=== PATIENT | female | born 1935 | race Caucasian/White ===

== ENCOUNTER 2022-12-16 13:56 | Outpatient (CLI) | payer MEDICARE, OTHER | END 2022-12-16 23:59 | disposition critical access hospital (66) | LOC: EMS 13:56 | DX: F03.911 Unspecified dementia, unspecified severity, with agitation (principal) | CPT/HCPCS: A0425; A0429 ==

== ENCOUNTER 2022-12-16 14:15 | Emergency (ER) | payer MEDICARE, OTHER ==
[2022-12-16] MEDS ORDERED: HALOPERIDOL 5 MG/ML VIAL IM STA ×2 (14:24→19:33)
[2022-12-16] MEDS ORDERED: OLANZapine 10 MG VIAL IM STA (14:24)
--- NOTE | 2022-12-16 14:28 | ED Physician Documentation ---
Restraint [id number] - Immediate Situation Face to Face Evaluation Date: 12/16/22 Face to Face Evaluation Time: 14:27 Restraint Classification: Violent, chemical w/ physical hold Restraint Type: Soft extremity, Side rails X 4, Chemical - Patient's Reaction & Behaviors Safety: Physically unsafe, Non-compliant Verbal: Screaming/Yelling Harm: Actual harm to others, Potential harm to self Physical: Aggressive behavior - Behavioral Condition Attitude: Indifferent Behavior: Agitated Orientation: Disoriented to all Mood: Other (Crying/Yelling) - Evaluation Review of Systems: Unable to obtain due to patient condition as well as history of dementia And reportedly nonverbal at baseline Pertinent History/Illicit Drugs/Medications/Results: Dementia - Plan Need to Continue or Terminate Violent or Chemical Restraint: We will remove physical restraints once patient is cooperative and no longer trying to hit at staff or interfering with assessment.
--- NOTE | 2022-12-16 14:42 | ED Physician Documentation ---
History of Present Illness - Stated complaint Stated Complaint: AGITATION - Chief complaint Chief Complaint: Neuro - History obtained from History obtained from: EMS - Additonal information Additional information: Patient is an 87-year-old female from home place with reported history of dementia. They report that she has been at the facility since last Thursday and has been refusing her medications including Seroquel which she receives at bedtime. For the past 4 hours she has been increasingly agitated with throwing anything that she can get her hands on with staff, kicking and hitting at them. Per EMS, patient is nonverbal at baseline. They also state she has had poor sleep at the facility. History is very limited as patient is not able to provide any. Review of Systems Unable to obtain: Dementia PD PAST MEDICAL HISTORY - Present Medications Home Medications: Ambulatory Orders Medication Instructions Recorded Confirmed Aspirin [Trimble Aspirin] 81 mg PO DAILY 12/16/22 12/16/22 Cholecalciferol (Vitamin D3) 12/16/22 [Vitamin D3] Cyanocobalamin (Vitamin B-12) 12/16/22 [Vitamin B-12] Digoxin [Digitek] 125 mcg PO 12/16/22 Ferrous Sulfate 325 mg PO DAILY 12/16/22 12/16/22 Levothyroxine [Synthroid] 112 mcg PO QDAC 12/16/22 12/16/22 Metoprolol Succinate [Toprol Xl] 50 mg PO 12/16/22 Multivitamin [Theragran] 1 tab PO DAILY 12/16/22 12/16/22 Omeprazole 20 mg PO DAILY 12/16/22 12/16/22 QUEtiapine [SEROquel] 25 mg PO DAILY PM 12/16/22 12/16/22 - Allergies Allergies/Adverse Reactions: Allergies Allergy/AdvReac Type Severity Reaction Status Date / Time latanoprost Allergy Unknown Verified 12/16/22 14:29 nitrofurantoin Allergy Unknown Verified 12/16/22 14:29 [From Macrobid] Sulfa (Sulfonamide Allergy Unknown Verified 12/16/22 14:29 Antibiotics) PD ED PE NORMAL - General General: Well developed/nourished, Other (Yelling nonsensically, alert, unable to establish orientation) - HEENT HEENT: Atraumatic, PERRL, Moist mucous membranes - Neck Neck: Supple, no meningeal sign - Cardiac Cardiac: RRR, No murmur - Respiratory Respiratory: No respiratory distress, Clear bilaterally - Abdomen Abdomen: Soft, Non tender - Derm Derm: Warm and dry - Extremities Extremities: No deformity - Neuro Neuro: Other (Moves all extremities) Results - Vitals Vitals: Vital Signs - 24 hr 12/16/22 12/16/22 12/16/22 14:23 14:27 16:13 Temperature 36.5 C Heart Rate 98 65 Respiratory 22 Rate Blood Pressure 103/76 O2 Saturation 98 100 Oxygen O2 Source Room air - EKG (time done) 1645 EKG releavant findings:: EKG personally interpreted by author of this note. Relevant findings are: Rate 73, atrial flutter, No prior for comparison, no STEMI Rate: Rate (enter#) (73) Rhythm: Atrial flutter Intervals: No: Prolonged QT Ischemia: No: ST elevation c/w ischemia Compare to prior EKG: Old EKG unavailable - Labs Labs: Laboratory Tests 12/16/22 12/16/22 12/16/22 15:47 15:47 15:47 WBC 10.9 H RBC 4.63 Hgb 14.8 Hct 43.8 MCV 94.6 MCH 32.0 H MCHC 33.8 RDW 12.7 Plt Count 141 MPV 11.2 H Neut # (Auto) 7.7 H Lymph # (Auto) 2.0 [place] # (Auto) 1.0 Eos # (Auto) 0.1 Baso # (Auto) 0.1 Absolute Nucleated RBC 0.00 Nucleated RBC % 0.0 Sodium 139 Potassium 3.5 Chloride 104 Carbon Dioxide 24 Anion Gap 11.0 BUN 43 H Creatinine 1.3 H Estimated GFR (MDRD) 39 L Glucose 193 H Calcium 8.9 Total Bilirubin 1.4 H AST 67 H ALT 43 Alkaline Phosphatase 105 Total Protein 7.8 Albumin 3.8 Globulin 4.0 Albumin/Globulin Ratio 1.0 Lipase 46 TSH 7.35 H Free T4 Urine Color Urine Clarity Urine pH Ur Specific [place] Urine Protein Urine Glucose (UA) Urine Ketones Urine Occult Blood Urine Nitrite Urine Bilirubin Urine Urobilinogen Ur Leukocyte Esterase Urine RBC Urine WBC Ur Squamous Epith Cells Urine Bacteria Urine Casts Urine Mucus Ur Microscopic Review Urine Culture Comments Salicylates < 6.0 Urine Opiates Screen Ur Oxycodone Screen Urine Methadone Screen Ur Propoxyphene Screen Acetaminophen < 10 L Ur Barbiturates Screen Ur Tricyclics Screen Ur Phencyclidine Scrn Ur Amphetamine Screen U Methamphetamines Scrn U Benzodiazepines Scrn Urine Cocaine Screen U Cannabinoids Screen Ethyl Alcohol < 5.0 12/16/22 12/16/22 15:47 17:56 WBC RBC Hgb Hct MCV MCH MCHC RDW Plt Count MPV Neut # (Auto) Lymph # (Auto) [place] # (Auto) Eos # (Auto) Baso # (Auto) Absolute Nucleated RBC Nucleated RBC % Sodium Potassium Chloride Carbon Dioxide Anion Gap BUN Creatinine Estimated GFR (MDRD) Glucose Calcium Total Bilirubin AST ALT Alkaline Phosphatase Total Protein Albumin Globulin Albumin/Globulin Ratio Lipase TSH Free T4 0.98 Urine Color DARK YELLOW Urine Clarity HAZY Urine pH 6.0 Ur Specific [place] 1.025 Urine Protein 100 H Urine Glucose (UA) NEGATIVE Urine Ketones 15 H Urine Occult Blood MODERATE H Urine Nitrite NEGATIVE Urine Bilirubin NEGATIVE Urine Urobilinogen 0.2 (NORMAL) Ur Leukocyte Esterase TRACE H Urine RBC 6-10 H Urine WBC 4-5 Ur Squamous Epith Cells MOD Squamous H Urine Bacteria Few Urine Casts 3-5 Hyaline Casts Urine Mucus Few Strands Ur Microscopic Review INDICATED Urine Culture Comments NOT INDICATED Salicylates Urine Opiates Screen NEGATIVE Ur Oxycodone Screen NEGATIVE Urine Methadone Screen NEGATIVE Ur Propoxyphene Screen NEGATIVE Acetaminophen Ur Barbiturates Screen NEGATIVE Ur Tricyclics Screen NEGATIVE Ur Phencyclidine Scrn NEGATIVE Ur Amphetamine Screen NEGATIVE U Methamphetamines Scrn NEGATIVE U Benzodiazepines Scrn NEGATIVE Urine Cocaine Screen NEGATIVE U Cannabinoids Screen NEGATIVE Ethyl Alcohol PD Medical Decision Making - ED course Complexity details: reviewed results, re-evaluated patient, d/w family ED course: Patient is an 87-year-old female with a history of dementia and behavioral disturbances presenting for evaluation of increased agitation over the past several hours. She has been in a new environment for the past 1 week. I spoke to her son Gabino. He states that the patient was living with his other brother Jordan for the past several years and he has been primarily caring for her. She has been in this halfway for the past 1 week for a 2-week respite care stay so that his brother could take some time for himself on a vacation. His brother Jordan is away on a cruise and is unable to be reached today. He is unsure if patient has reported having had back pain in the past.He does report that at times she has had episodes of acting out and throwing pillows.He is not able to provide much history regarding his mother. Upon arrival patient is noncooperative with any interventions from EMS or in the ED to obtain vital signsOr assess her. She is swinging at staff. She is kicking her legs. She was given IM Haldol for chemical sedation. After the Haldol she was able to be much more cooperative with obtaining a CT imaging, labs, urine analysis. Per the nurse feel that she was even able to get up to the commode to give a urine sample. At times patient states that she may have pain in the back. Her ability to communicate is limited. I did evaluate her back. She does not have any midline tenderness. She does have a well-healed incision to the lower back. She does not have any abdominal tenderness on exam. I reviewed her labs including CBC, chemistries, urine analysis as well as imaging including CT head, CT lumbar spine and chest x-ray.Her TSH was elevated but free T4 is normal. Mild elevation to Cr - unclear of her baseline. Tbili and AST also slightly elevated. No abdominal tenderness on repeated exams and pt is tolerating PO intake without issue (given sandwich). Even with haldol IM on board pt is refusing PO medications and at times striking out at staff. Perhaps with sleep tonight she will be more amenable to taking her meds in the AM. She will remain boarding in ED and is signed out to oncoming provider at shift change. Departure - Departure Clinical Impression: Dementia with behavioral disturbance Condition: Stable
[2022-12-16 15:54] LABS: BASOPHILS # (AUTO) 0.1 10^3/uL (0.0-0.1); BASOPHILS % (AUTO) 0.6 %; EOSINOPHILS # (AUTO) 0.1 10^3/uL (0.0-0.7); EOSINOPHILS % (AUTO) 0.6 %; HCT - HEMATOCRIT 43.8 % (37.0-47.0); HGB - HEMOGLOBIN 14.8 g/dL (12.0-16.0); LYMPHOCYTES % (AUTO) 18.1 %; MEAN CORPUSCULAR HGB CONC 33.8 g/dL (32.0-36.0); MEAN CORPUSCULAR VOLUME 94.6 fL (81.0-99.0); MEAN PLATELET VOLUME 11.2 fL (7.9-10.8); MONOCYTES % (AUTO) 9.4 %; NEUTROPHILS # (AUTO) 7.7 10^3/uL (1.5-6.6); NEUTROPHILS % (AUTO) 70.9 %; PLT - PLATELET COUNT 141 10^3/uL (130-450); RED BLOOD COUNT 4.63 10^6/uL (4.20-5.40); RED CELL DISTRIBUTION WIDTH 12.7 % (12.0-15.0); WHITE BLOOD COUNT 10.9 x10^3/uL (4.8-10.8)
[2022-12-16 16:11] LABS: ACETAMINOPHEN < 10 ug/mL (10-30); ALBUMIN 3.8 g/dL (3.2-5.5); ALKALINE PHOSPHATASE 105 IU/L (42-121); ALT ALANINE AMINOTRANSFERASE 43 IU/L (10-60); AST ASPARTATE AMINOTRANSFERASE 67 IU/L (10-42); BILIRUBIN,TOTAL 1.4 mg/dL (0.2-1.0); BUN - BLOOD UREA NITROGEN 43 mg/dL (6-20); CALCIUM 8.9 mg/dL (8.5-10.3); CARBON DIOXIDE - CO2 24 mmol/L (21-32); CHLORIDE 104 mmol/L (101-111); CREATININE 1.3 mg/dL (0.4-1.0); ETOH - ETHANOL < 5.0 mg/dL; GFR - MDRD 39 (>89); GLUCOSE 193 mg/dL (70-100); LIPASE 46 U/L (22-51); POTASSIUM 3.5 mmol/L (3.5-5.0); SALICYLATE < 6.0 mg/dL; SODIUM 139 mmol/L (135-145); TOTAL PROTEIN 7.8 g/dL (6.7-8.2)
--- NOTE | 2022-12-16 16:34 | CT Report ---
PROCEDURE: HEAD WO INDICATIONS: AMS/agitation/dementia TECHNIQUE: Noncontrast 4.5 mm thick angled axial sections acquired from the foramen magnum to the vertex. For r adiation dose reduction, the following was used: automated exposure control, adjustment of mA and/or kV according to patient size. COMPARISON: None. FINDINGS: Image quality: Excellent. CSF spaces: Basal cisterns are patent. No extra-axial fluid collections. Ventricles are normal in size and shape. Brain: No midline shift. No intracranial masses or hemorrhage. Hernandez-white matter interface is norm al. Leukoaraiosis, commonly caused by chronic small vessel ischemic disease. Age-related volume loss. Skull and face: Calvarium and visualized facial bones are intact, without suspicious lesions. Sinuses: Visualized sinuses and mastoids are clear. IMPRESSION: No acute intracranial pathology Reviewed by: Luigi Horne on 12/16/2022 4:32 PM PDT Approved by: Luigi Horne on 12/16/2022 4:32 PM PDT Station ID: [id number]
--- NOTE | 2022-12-16 16:35 | XRAY Report ---
PROCEDURE: Chest 1 View X-Ray INDICATIONS: AMS TECHNIQUE: One view of the chest was acquired. COMPARISON: None. FINDINGS: Surgical changes and devices: None. Lungs and pleura: Low lung volumes. Increased pulmonary markings. Probable small effusions. Peribron chial cuffing. Mediastinum: Mediastinal contours appear normal. Heart size is normal. Bones and chest wall: No suspicious bony lesions. Overlying soft tissues appear unremarkable. IMPRESSION: Moderate pulmonary edema and suspected small pleural effusions. Reviewed by: Luigi Horne on 12/16/2022 4:33 PM PDT Approved by: Luigi Horne on 12/16/2022 4:33 PM PDT Station ID: [id number]
[2022-12-16 17:59] LABS: MUDS CUTOFF CONCENTRATIONS CUTOFF CONC BELOW:
[2022-12-16 18:03] LABS: BILIRUBIN,URINE NEGATIVE (NEGATIVE); GLUCOSE, URINE (UA) NEGATIVE (NEGATIVE); KETONES,URINE (UA) 15 mg/dL (NEGATIVE); LEUKOCYTE ESTERASE, URINE TRACE (NEGATIVE); NITRITE,URINE NEGATIVE (NEGATIVE); OCCULT BLOOD,URINE MODERATE (NEGATIVE); PROTEIN,URINE 100 mg/dL (NEGATIVE); UROBILINOGEN,URINE 0.2 (NORMAL) E.U./dL (NORMAL)
[2022-12-16 18:15] LABS: AMPHETAMINE SCREEN,URINE NEGATIVE (NEGATIVE); BARBITURATE SCREEN,UR NEGATIVE (NEGATIVE); BENZODIAZEPINES SCREEN, URINE NEGATIVE (NEGATIVE); CLARITY,URINE HAZY (CLEAR); COCAINE SCREEN URINE NEGATIVE (NEGATIVE); METHADONE SCREEN, URINE NEGATIVE (NEGATIVE); METHAMPHETAMINES SCREEN, URINE NEGATIVE (NEGATIVE); OPIATE SCREEN, URINE NEGATIVE (NEGATIVE); OXYCODONE SCREEN, URINE NEGATIVE (NEGATIVE); PROPOXYPHENE SCREEN, URINE NEGATIVE (NEGATIVE); THC CANNABINOID SCREEN, URINE NEGATIVE (NEGATIVE); TRICYCLIC ANTIDEPRESSANT,URINE NEGATIVE (NEGATIVE)
[2022-12-16 18:16] LABS: BACTERIA,URINE Few /HPF (None Seen); CASTS, URINE 3-5 Hyaline Casts /LPF; MUCUS,URINE Few Strands; SQUAMOUS EPITHELIAL CELL,UR MOD Squamous (<= Few)
[2022-12-16] MEDS ORDERED: HALOPERIDOL 5 MG/ML VIAL ONE (19:42)
--- NOTE | 2022-12-16 19:42 | CT Report ---
PROCEDURE: LUMBAR SPINE WO INDICATIONS: pain TECHNIQUE: Noncontrast 3 mm thick sections acquired from the T12 level to the sacrum. Sagittal and coronal refo rmats were constructed. For radiation dose reduction, the following was used: automated exposure co ntrol, adjustment of mA and/or kV according to patient size. COMPARISON: None. FINDINGS: Image quality: Excellent. Bones: There is grade 1 anterolisthesis of L4 on L5, and grade 1 retrolisthesis of L2 on L3. No acu te vertebral body compression fractures. No suspicious lytic or blastic bony lesions. Central spina l caliber is of normal overall caliber. No pars defects. Degenerative disc disease, [id number] at L1-L2, L2-L3, L3-L4 and L4-L5. Severe bilateral face t arthropathy at L3-L4, L4-L5 and L5-S1. There is osteopenia. Soft tissues: No retroperitoneal masses or hematomas. Visualized aorta is normal in caliber. Severe atherosclerotic calcifications of aorta and iliac arteries. 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 Diverticulosis without acute diverticulitis. IMPRESSION: 1. No fracture. 2. 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 3. Osteopenia. Reviewed by: Selwyn Medrano MD on 12/16/2022 7:41 PM PDT Approved by: Selwyn Medrano MD on 12/16/2022 7:41 PM PDT Station ID: [id number]
[2022-12-16] MEDS: QUEtiapine 25 MG TABLET PO STA (19:45)
--- NOTE | 2022-12-16 21:30 | ED Physician Documentation ---
Restraint Ucuz-yh-[id number] - Immediate Situation Face to Face Evaluation Date: 12/16/22 Face to Face Evaluation Time: 19:38 Restraint Classification: Violent, chemical Restraint Type: Chemical - Patient's Reaction & Behaviors Safety: Physically unsafe Verbal: Screaming/Yelling Harm: Potential harm to self, Potential harm to others Physical: Aggressive behavior - Behavioral Condition Attitude: Indifferent Behavior: Agitated Orientation: Disoriented to all Mood: Angry - Evaluation Review of Systems: Unable to obtain due to patient condition as well as history of dementia And re portedly nonverbal at baseline Pertinent History/Illicit Drugs/Medications/Results: Dementia - Plan Need to Continue or Terminate Violent or Chemical Restraint: We will remove restraints once It is safe to do so.
[2022-12-17] MEDS: QUEtiapine 25 MG TABLET PO STA (02:28)
[2022-12-17 05:05] VITALS: BP 103/76
== END 2022-12-17 04:26 | disposition home or self-care (01) ==
LOC: ED 14:15
DX: F03.911 Unspecified dementia, unspecified severity, with agitation (principal); Z91.148 Patient's other noncompliance with medication regimen for other reason
CPT/HCPCS: 36415; 70450; 71045; 72131; 80053; 80306; 80307; 81001; 83690; 84439; 84443; 85025; 93005; 96372; 99284; 99285; A9270; G0480; 80320; 80329; 81003; 87086

== ENCOUNTER 2022-12-17 04:19 | Outpatient (CLI) | payer MEDICARE, OTHER | END 2022-12-17 23:59 | disposition home or self-care (01) | LOC: EMS 04:19 | PROVIDERS: ATTEND Emergency Medicine | DX: F03.911 Unspecified dementia, unspecified severity, with agitation (principal) | CPT/HCPCS: A0425; A0428 ==